=== PATIENT | female | born 1970 | race Two or more races ===

== ENCOUNTER 2018-05-18 06:26 | Day surgery (SDC) | payer OTHER, MEDICAID ==
[2018-05-18] MEDS ORDERED: LIDOCAINE 2% (SDV) 5 ML INJ (07:51)
[2018-05-18] MEDS ORDERED: PROPOFOL 60 ML (07:51)
== END 2018-05-18 09:33 | disposition home or self-care (01) ==
LOC: GIL 06:26
DX: R19.4 Change in bowel habit (principal); K29.50 Unspecified chronic gastritis without bleeding; K21.0 Gastro-esophageal reflux disease with esophagitis; K64.8 Other hemorrhoids; K64.4 Residual hemorrhoidal skin tags; E03.9 Hypothyroidism, unspecified; J45.909 Unspecified asthma, uncomplicated
CPT/HCPCS: 43239; 84703; 88305; 88312